=== PATIENT | male | born 1995 | race Two or more races ===

== ENCOUNTER 2019-09-21 01:15 | Emergency (ER) | payer OTHER, SELFPAY ==
[~2019-09-21] VITALS: Ht 177.8 cm; Wt 103.3 kg
[2019-09-21] MEDS ORDERED: ACETAMINOPHEN 500 MG TABLET ONE (01:40)
[2019-09-21] MEDS ORDERED: IBUPROFEN 600 MG TABLET ONE (01:40)
--- NOTE | 2019-09-21 01:40 | NUR ---
LATE NOTE: PT C/O RIGHT ANKLE PAIN FOR X2 DAYS. PT REPORTS HISTORY OF SAME. PT ABLE TO AMBULATE, REPORTS PAIN WITH MOVEMENT. PT DENIES OTHER NEEDS AT THIS TIME. ERP IN ROOM TO EVAL PT.
--- NOTE | 2019-09-21 01:51 | NUR ---
PT ICATED PER MAR. IMAGING IN ROOM AT THIS TIME.
[2019-09-21] MEDS ORDERED: IBUPROFEN 600 MG TABLET PO ONE (02:00)
[2019-09-21] MEDS ORDERED: ACETAMINOPHEN 500 MG TABLET PO ONE (02:00)
[2019-09-21 02:45] VITALS: BP 98/54
== END 2019-09-21 02:55 | disposition home or self-care (01) ==
LOC: ED 02:50
DX: M79.671 Pain in right foot (principal); F17.200 Nicotine dependence, unspecified, uncomplicated
CPT/HCPCS: 99283

== ENCOUNTER 2020-03-15 11:50 | Emergency (ER) | payer OTHER ==
[~2020-03-15] VITALS: Ht 172.7 cm; Wt 102.1 kg
[2020-03-15] MEDS ORDERED: DIPHENHYDRAMINE 50 MG/ML, 1ML IVPush ONE (12:30)
[2020-03-15] MEDS ORDERED: SODIUM CHLORIDE 0.9% 1,000ML IVBOLUS ONE (12:30)
[2020-03-15] MEDS ORDERED: METOCLOPRAMIDE 5 MG/ML, 2ML IVPush ONE (12:30)
[2020-03-15] MEDS ORDERED: DIPHENHYDRAMINE 50 MG/ML, 1ML ONE (12:47)
[2020-03-15] MEDS ORDERED: METOCLOPRAMIDE 5 MG/ML, 2ML ONE (12:47)
--- NOTE | 2020-03-15 13:19 | NUR ---
Pt resting, to DC after fluid bolus.
[2020-03-15 13:51] VITALS: BP 117/67
--- NOTE | 2020-03-15 13:51 | NUR ---
Pt states feeling better. Bolus complete
--- NOTE | 2020-03-15 14:14 | NUR ---
FLORUDDY RN. PT D/C'D PER ORDERS. VERBALIZED UNDERSTANDING OF D/C INSTRUCTIONS. PT HAS ALL OWN BELONGINGS UPON D/C, STEADY GAIT.
== END 2020-03-15 14:16 | disposition home or self-care (01) ==
LOC: ED 13:25
DX: R51 Headache (principal); R11.2 Nausea with vomiting, unspecified; F17.200 Nicotine dependence, unspecified, uncomplicated
CPT/HCPCS: 70450; 96361; 96374; 96375; 99284; J1200; J2765; J7030